=== PATIENT | male | born 1980 | race Caucasian/White ===

== ENCOUNTER → 2021-06-24 13:08 | Outpatient (CLI) | payer OTHER, SELFPAY ==
--- NOTE | 2021-06-24 | DI.MRI.S_ITS ---
PROCEDURE: MR HEAD/BRAIN WO/W CON INDICATIONS: Unspecified injury of head, initial encounter TECHNIQUE: Noncontrast axial T1 spin echo, axial T2 fast spin echo, sagittal and axial FLAIR, coronal T2 fast spin echo, axial gradient echo, axial diffusion and ADC through the brain. After the administration of contrast, axial and coronal 3D VIBE or T1 spin echo with fat saturation through the brain. COMPARISON: None. FINDINGS: Image quality: Excellent. CSF Spaces: Basal cisterns are patent. No extra-axial fluid collections. Ventricles are normal in size and shape. Brain: No midline shift. No intracranial bleeds or masses. No abnormal intracranial enhancement. The brainstem appears normal. Diffusion-weighted images demonstrate no acute ischemic insults. No chronic ischemic insults. Normal intravascular flow voids are present. Skull and face: Calvarial marrow is normal in signal. Orbits appear normal. Sinuses: Sinuses and mastoids appear clear. IMPRESSION: No findings of hemorrhage or brain edema can be seen. Negative for hydrocephalus. No findings of acute or subacute infarction can be seen. No masses or abnormal enhancement can be seen. Dictated by: David Cervantes M.D. on 06/24/2021 at 13:51 Approved by: David Cervantes M.D. on 06/24/2021 at 13:51
== END ==
PROVIDERS: PCP Family Medicine; Referring Provider Family Medicine; Visit Provider Family Medicine
DX: S09.90XA Unspecified injury of head, initial encounter (principal); R42 Dizziness and giddiness; R45.86 Emotional lability; H52.7 Unspecified disorder of refraction; X58.XXXA Exposure to other specified factors, initial encounter
CPT/HCPCS: 70553

== ENCOUNTER 2021-08-31 13:45 | Outpatient (RCR) | payer OTHER, SELFPAY ==
--- NOTE | 2021-08-13 12:48 | PT.OIE ---
Current Diagnoses Dizziness and giddiness (08/13/21) Unspecified injury of head, initial encounter (08/13/21) Unspecified injury of head, subsequent encounter (08/13/21) Visit Care Team Role Provider Type Jordyn Vaca DO Attending Provider Non-Staff Family Provider Primary Care Provider Referring Provider Specialty: Medical Address: [address] [place] [address], [id number] Email: Physical Therapy Initial Evaluation PT-OP-A Visit Information Start: 08/13/21 11:42 Freq: Status: Active Protocol: Document 08/13/21 09:45 DCW (Rec: 08/13/21 11:48 DCW [id number]) Out-Patient Physical Therapy Visit Information Visit Information Visit Type Initial Evaluation Visit Start Time 09:45 Visit Stop Time 10:30 Total Visit Minutes 45 Visit Number 1 Number of BILLING AND INSURANCE COORDINATOR Visits 0 Evaluation Information Evaluation Date 08/13/21 PT-OP-B Current Condition Start: 08/13/21 11:42 Freq: Status: Active Protocol: Document 08/13/21 09:45 DCW (Rec: 08/13/21 12:26 DCW [id number]) Current Condition History of Current Condition Onset Date 2016 Current Complaints Visual motion sensitivity History of Current Condition Pt is a 41 year old male presenting with a 6 year history of imbalance following a concussion. 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 [employer] set him ashore until he was properly diagnosed and treated enough that he could fulfill normal functions. Pt notes he underwent 2 years of rehab, including six months of intensive concussion recovery training, which involved getting into a large simulator which was able to mimic sea conditions, and he was able to slowly build tolerance, and symptoms largely resolved. 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 Over the holidays, however he flew back home for a visit, and the flight flared up his symptoms, and now he is struggling more with riding as a passenger in a car, walking down aisles in stores, watching the movement of a preservationist, or watching [employer] TV programs. 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 Prior Treatments and Tests Brain MRI: IMPRESSION: No findings of hemorrhage or brain edema can be seen. Negative for hydrocephalus. No findings of acute or subacute infarction can be seen. No masses or abnormal enhancement can be seen. Per David Cervantes M.D. 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 It's not like I can just hop on and then get off after an hour or a day if it's bothering me. Patient Reported Progress Worse Patient Questionnaires Dizziness Handicap Inventory DHI Score 38% DHI Functional Impairment 20 to 39% Impaired (Score 20- 39) PT-OP-D Balance Start: 08/13/21 11:42 Freq: Status: Active Protocol: Document 08/13/21 09:45 DCW (Rec: 08/13/21 11:53 DCW [id number]) OP-PT Balance Assessment Sitting Balance Static Sitting Balance Ability Normal Dynamic Sitting Balance Ability Normal Standing Balance Static Standing Balance Ability Normal Dynamic Standing Balance Ability Normal Balance Tests Single Limb Standing Single Limb- Right 30+ Single Limb- Left 30+ Tandem Tandem Standing 30+ bilaterally Beatty Fall Scale Copyright Permission PT-OP-O Vestibular Start: 08/13/21 11:42 Freq: Status: Active Protocol: Document 08/13/21 09:45 DCW (Rec: 08/13/21 11:53 DCW [id number]) Vestibular Assessment Screening Tests Vestibular Artery Screen Negative Auditory Tests Youssef Test Within normal limits Rinne Test Negative Air Conduction Results Equal Visual Testing Smooth Pursuits Horizontal WNL Smooth Pursuits Vertical WNL Saccades Horizontal WNL Saccades Vertical WNL Gaze Evoked Nystagmus With Fixation Negative Gaze Evoked Nystagmus Without Fixation Negative Diego String Test Impaired Convergence Test Impaired DVA (Line Degradation) 2 Head Shake Negative Spontaneous Nystagmus Negative Comments Vestibular Comments Diego string: Pt left eye cannot keep up with right eye when moving back and forth between beads, significant delay. Convergence test: Pt reports diplopia ay 12 cm PT-OP-Q Treatments Start: 08/13/21 11:42 Freq: Status: Active Protocol: Document 08/13/21 09:45 DCW (Rec: 08/13/21 11:53 DCW [id number]) Self-Care/Home Management Treatment Education Patient Education Home Exercise Program Other Education Demonstration of pencil push- ups PT-OP-T Assessment and Plan Start: 08/13/21 11:42 Freq: Status: Active Protocol: Document 08/13/21 09:45 DCW (Rec: 08/13/21 12:48 DCW [id number]) Physical Therapy Assessment Rehab Potential Rehabilitation Potential Good Evaluation Complexity Number of Personal Factors/Comorbidities 3 or More Number of Body Systems Impaired 4 or More Clinical Presentation at Evaluation Unstable Impairments Impairments Vestibular,Visual Motor Other Impairments Concussion history, visual changes, UE numbness/tingling, sinus pressure, visual motion sensitivities Goals Three Impairment Pt becomes highly symptomatic with riding in vehicle or watching TV [facility] Goal (LTG) Pt no report ability to ride as a passenger in a car for 60 minutes without increased symptoms LTG Duration 11/13/21 Two Impairment Pt experiences diplopia with convergence at 12 cm Certified Ophthalmic Assistant Goal (LTG) Pt to demonstrate ability to not experience diplopia with convergence until 6 cm to show improved occulomotor control and display improved visual tracking LTG Duration 11/13/21 One Impairment Pt does not have an appropriate home exercise program Short Term Goal (STG) Pt to be independent and compliant with an appropriate HEP STG Duration 09/13/21 Assessment Summary Assessment Pt presents with signs and symptoms consistent with Optokinetic Nystagmus/Visual Motion sensitivity. Vestibular testing largely negative today, however pt did display abnormal testing with both convergence and Diego string, in both instances, his left eye appears to lag behind and track in an abnormal pattern when changing field of vision. This may be responsible for his abnormal sensations and nausea with excessive visual motion. Will likely benefit from skilled vestibular therapy focusing on occulomotor and visual motion training to help diminish/ control symptoms. Further testing will also likely be helpful to determine extent of pt's sensitivities. Physical Therapy Plan Frequency and Duration Frequency of Treatment 2x/Week Duration of Treatment Three months Plan of Care Start Date 08/13/21 Plan of Care End Date 11/13/21 Therapeutic Interventions Therapeutic Interventions Balance Training,Coordination Training,Gait Training,Home Exercise Program,Manual Therapy,Neuromuscular Re- education,Patient/Caregiver Education,Self-Care/Home Management,Therapeutic Activities,Therapeutic Exercises,Vestibular Rehabilitation Next Visit Focus/Plan Next Note Type Treatment Note Next Visit Plan Further vestibular/balance/ occulomotor testing, vestibular rehab
--- NOTE | 2021-08-13 12:50 | PT.OPPOC ---
Physical, Occupational & Speech Therapy At [facility] Current Diagnoses Dizziness and giddiness (08/13/21) Unspecified injury of head, initial encounter (08/13/21) Unspecified injury of head, subsequent encounter (08/13/21) Visit Care Team Role Provider Type Jordyn Vaca DO Attending Provider Non-Staff Family Provider Primary Care Provider Referring Provider Specialty: Medical Address: [address] [place] [address], [id number] Email: Plan Of Care PT-OP-T Assessment and Plan Start: 08/13/21 11:42 Freq: Status: Active Protocol: Document 08/13/21 09:45 DCW (Rec: 08/13/21 12:48 DCW [id number]) Physical Therapy Assessment Rehab Potential Rehabilitation Potential Good Evaluation Complexity Number of Personal Factors/Comorbidities 3 or More Number of Body Systems Impaired 4 or More Clinical Presentation at Evaluation Unstable Impairments Impairments Vestibular,Visual Motor Other Impairments Concussion history, visual changes, UE numbness/tingling, sinus pressure, visual motion sensitivities Goals Three Impairment Pt becomes highly symptomatic with riding in vehicle or watching TV [facility] Goal (LTG) Pt to report ability to ride as a passenger in a car for 60 minutes without increased symptoms LTG Duration 11/13/21 Two Impairment Pt experiences diplopia with convergence at 12 cm [facility] Goal (LTG) Pt to demonstrate ability to not experience diplopia with convergence until 6 cm to show improved occulomotor control and display improved visual tracking LTG Duration 11/13/21 One Impairment Pt does not have an appropriate home exercise program Short Term Goal (STG) Pt to be independent and compliant with an appropriate HEP STG Duration 09/13/21 Assessment Summary Assessment Pt presents with signs and symptoms consistent with Optokinetic Nystagmus/Visual Motion sensitivity. Vestibular testing largely negative today, however pt did display abnormal testing with both convergence and Diego string, in both instances, his left eye appears to lag behind and track in an abnormal pattern when changing field of vision. This may be responsible for his abnormal sensations and nausea with excessive visual motion. Will likely benefit from skilled vestibular therapy focusing on occulomotor and visual motion training to help diminish/ control symptoms. Further testing will also likely be helpful to determine extent of pt's sensitivities. Physical Therapy Plan Frequency and Duration Frequency of Treatment 2x/Week Duration of Treatment Three months Plan of Care Start Date 08/13/21 Plan of Care End Date 11/13/21 Therapeutic Interventions Therapeutic Interventions Balance Training,Coordination Training,Gait Training,Home Exercise Program,Manual Therapy,Neuromuscular Re- education,Patient/Caregiver Education,Self-Care/Home Management,Therapeutic Activities,Therapeutic Exercises,Vestibular Rehabilitation Next Visit Focus/Plan Next Note Type Treatment Note Next Visit Plan Further vestibular/balance/ occulomotor testing, vestibular rehab Plan of Care Dates Plan of Care Start Date 08/13/21 Plan of Care End Date 11/13/21 Electronically Signed by: Douglas Chen, PT 08/13/21 1250 Please Sign and Return: I have reviewed this Plan of Care and certify that the skilled therapy services above are required to meet the patient?s needs. Physician Signature Date Printed Name and Credentials Clinical Instructor Signature Printed Name and Credentials
--- NOTE | 2021-08-17 14:34 | PT.OTN ---
Current Diagnoses Dizziness and giddiness (08/17/21) Unspecified injury of head, initial encounter (08/17/21) Unspecified injury of head, subsequent encounter (08/17/21) Physical Therapy Treatment Note PT-OP-A Visit Information Start: 08/13/21 11:42 Freq: Status: Active Protocol: Document 08/17/21 13:45 DCW (Rec: 08/17/21 14:34 DCW [id number]) Out-Patient Physical Therapy Visit Information Visit Information Visit Type Treatment Note Visit Start Time 13:45 Visit Stop Time 14:30 Total Visit Minutes 45 Visit Number 2 Number of CYBER ENGINEER Visits 0 Evaluation Information Evaluation Date 08/13/21 PT-OP-B Current Condition Start: 08/13/21 11:42 Freq: Status: Active Protocol: Document 08/13/21 09:45 DCW (Rec: 08/13/21 12:26 DCW [id number]) Current Condition History of Current Condition Onset Date 2015 Current Complaints Visual motion sensitivity History of Current Condition Pt is a 41 year old male presenting with a 6 year history of imbalance following a concussion. 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 [employer] set him ashore until he was properly diagnosed and treated enough that he could fulfill normal functions. Pt notes he underwent 2 years of rehab, including six months of intensive concussion recovery training, which involved getting into a large simulator which was able to mimic sea conditions, and he was able to slowly build tolerance, and symptoms largely resolved. 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 Over the holidays, however he flew back home for a visit, and the flight flared up his symptoms, and now he is struggling more with riding as a passenger in a car, walking down aisles in stores, watching the movement of a tracer powder blender, or watching shakey TV programs. 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 Prior Treatments and Tests Brain MRI: IMPRESSION: No findings of hemorrhage or brain edema can be seen. Negative for hydrocephalus. No findings of acute or subacute infarction can be seen. No masses or abnormal enhancement can be seen. Per David Cervantes M.D. 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 Pt notes he was doing his pencil pushups daily . PT-OP-D Balance Start: 08/13/21 11:42 Freq: Status: Active Protocol: Document 08/13/21 09:45 DCW (Rec: 08/13/21 11:53 DCW [id number]) OP-PT Balance Assessment Sitting Balance Static Sitting Balance Ability Normal Dynamic Sitting Balance Ability Normal Standing Balance Static Standing Balance Ability Normal Dynamic Standing Balance Ability Normal Balance Tests Single Limb Standing Single Limb- Right 30+ Single Limb- Left 30+ Tandem Tandem Standing 30+ bilaterally Beatty Fall Scale Copyright Permission PT-OP-O Vestibular Start: 08/13/21 11:42 Freq: Status: Active Protocol: Document 08/13/21 09:45 DCW (Rec: 08/13/21 11:53 DCW [id number]) Vestibular Assessment Screening Tests Vestibular Artery Screen Negative Auditory Tests Youssef Test Within normal limits Rinne Test Negative Air Conduction Results Equal Visual Testing Smooth Pursuits Horizontal WNL Smooth Pursuits Vertical WNL Saccades Horizontal WNL Saccades Vertical WNL Gaze Evoked Nystagmus With Fixation Negative Gaze Evoked Nystagmus Without Fixation Negative Diego String Test Impaired Convergence Test Impaired DVA (Line Degradation) 2 Head Shake Negative Spontaneous Nystagmus Negative Comments Vestibular Comments Diego string: Pt left eye cannot keep up with right eye when moving back and forth between beads, significant delay. Convergence test: Pt reports diplopia ay 12 cm PT-OP-Q Treatments Start: 08/13/21 11:42 Freq: Status: Active Protocol: Document 08/17/21 13:45 DCW (Rec: 08/17/21 14:34 DCW [id number]) Neuro Re-Education Treatment Balance Activities BOSU Stance Details BOSU DL stance Surface Blue BOSU Retro Walking Details Backward Amb Tandem Ambulation Details Tandem Amb Head Turns Details Amb /c head turns Comments Horizontal/Vertical Vestibular Rehabilitation Disco ball Details Testing tolerance Position Standing/Foam standing Comments ~60 tolerance on firm and foam, reported pressure over eyes afterward Corrective Saccades Details Eyes, then head Distance From Target arm's length Speed as tolerated Position seated X2 Viewing Details Head/target in opposite directions Distance From Target arm's length Speed as tolerated Position seated X1 Viewing Details Head moves/target still Distance From Target arm's length Speed as tolerated Position seated VOR Retraining Details Head/Target move together Distance From Target arm's length Speed as tolerated Position seated Convergence Details Pencil push-ups Distance From Target varied Speed as tolerated Position seated PT-OP-T Assessment and Plan Start: 08/13/21 11:42 Freq: Status: Active Protocol: Document 08/17/21 13:45 DCW (Rec: 08/17/21 14:34 DCW [id number]) Physical Therapy Assessment Impairments Impairments Vestibular,Visual Motor Other Impairments Concussion history, visual changes, UE numbness/tingling, sinus pressure, visual motion sensitivities Goals Three Impairment Pt becomes highly symptomatic with riding in vehicle or watching TV [facility] Goal (LTG) Pt to report ability to ride as a passenger in a car for 60 minutes without increased symptoms LTG Duration 11/13/21 Two Impairment Pt experiences diplopia with convergence at 12 cm [facility] Goal (LTG) Pt to demonstrate ability to not experience diplopia with convergence until 6 cm to show improved occulomotor control and display improved visual tracking LTG Duration 11/13/21 One Impairment Pt does not have an appropriate home exercise program Short Term Goal (STG) Pt to be independent and compliant with an appropriate HEP STG Duration 09/13/21 Assessment Summary Assessment Pt continues to display difficulty with challenges to visual and vestibular system, especially head turns during gait. Given HEP for occulomotor/vestibular training. Physical Therapy Plan Frequency and Duration Frequency of Treatment 2x/Week Duration of Treatment Three months Plan of Care Start Date 08/13/21 Plan of Care End Date 11/13/21 Therapeutic Interventions Therapeutic Interventions Balance Training,Coordination Training,Gait Training,Home Exercise Program,Manual Therapy,Neuromuscular Re- education,Patient/Caregiver Education,Self-Care/Home Management,Therapeutic Activities,Therapeutic Exercises,Vestibular Rehabilitation Next Visit Focus/Plan Next Note Type Treatment Note Next Visit Plan Further vestibular/balance/ occulomotor testing, vestibular rehab
--- NOTE | 2021-08-19 10:30 | PT.OTN ---
Current Diagnoses Dizziness and giddiness (08/19/21) Unspecified injury of head, initial encounter (08/19/21) Unspecified injury of head, subsequent encounter (08/19/21) Physical Therapy Treatment Note PT-OP-A Visit Information Start: 08/13/21 11:42 Freq: Status: Active Protocol: Document 08/19/21 09:45 DCW (Rec: 08/19/21 10:30 DCW [id number]) Out-Patient Physical Therapy Visit Information Visit Information Visit Type Treatment Note Visit Start Time 09:45 Visit Stop Time 10:15 Total Visit Minutes 30 Visit Number 3 Number of FLOORING MACHINE OPERATOR Visits 0 Evaluation Information Evaluation Date 08/13/21 PT-OP-B Current Condition Start: 08/13/21 11:42 Freq: Status: Active Protocol: Document 08/13/21 09:45 DCW (Rec: 08/13/21 12:26 DCW [id number]) Current Condition History of Current Condition Onset Date 2015 Current Complaints Visual motion sensitivity History of Current Condition Pt is a 41 year old male presenting with a 6 year history of imbalance following a concussion. 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 [facility] set him ashore until he was properly diagnosed and treated enough that he could fulfill normal functions. Pt notes he underwent 2 years of rehab, including six months of intensive concussion recovery training, which involved getting into a large simulator which was able to mimic sea conditions, and he was able to slowly build tolerance, and symptoms largely resolved. 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 Over the holidays, however he flew back home for a visit, and the flight flared up his symptoms, and now he is struggling more with riding as a passenger in a car, walking down aisles in stores, watching the movement of a shipping and receiving coordinator, or watching shakey TV programs. 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 Prior Treatments and Tests Brain MRI: IMPRESSION: No findings of hemorrhage or brain edema can be seen. Negative for hydrocephalus. No findings of acute or subacute infarction can be seen. No masses or abnormal enhancement can be seen. Per David Cervantes M.D. 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 [employer] PT-OP-C Subjective Start: 08/13/21 11:42 Freq: Status: Active Protocol: Document 08/19/21 09:45 DCW (Rec: 08/19/21 10:30 DCW [id number]) OP-PT Subjective Patient Comments Patient Comments Pt notes he was bad enough following his last visit he was not able to function very well in his daily life, was not able to perform his HEP PT-OP-D Balance Start: 08/13/21 11:42 Freq: Status: Active Protocol: Document 08/13/21 09:45 DCW (Rec: 08/13/21 11:53 DCW [id number]) OP-PT Balance Assessment Sitting Balance Static Sitting Balance Ability Normal Dynamic Sitting Balance Ability Normal Standing Balance Static Standing Balance Ability Normal Dynamic Standing Balance Ability Normal Balance Tests Single Limb Standing Single Limb- Right 30+ Single Limb- Left 30+ Tandem Tandem Standing 30+ bilaterally Beatty Fall Scale Copyright Permission PT-OP-O Vestibular Start: 08/13/21 11:42 Freq: Status: Active Protocol: Document 08/13/21 09:45 DCW (Rec: 08/13/21 11:53 DCW [id number]) Vestibular Assessment Screening Tests Vestibular Artery Screen Negative Auditory Tests Youssef Test Within normal limits Rinne Test Negative Air Conduction Results Equal Visual Testing Smooth Pursuits Horizontal WNL Smooth Pursuits Vertical WNL Saccades Horizontal WNL Saccades Vertical WNL Gaze Evoked Nystagmus With Fixation Negative Gaze Evoked Nystagmus Without Fixation Negative Diego String Test Impaired Convergence Test Impaired DVA (Line Degradation) 2 Head Shake Negative Spontaneous Nystagmus Negative Comments Vestibular Comments Diego string: Pt left eye cannot keep up with right eye when moving back and forth between beads, significant delay. Convergence test: Pt reports diplopia ay 12 cm PT-OP-Q Treatments Start: 08/13/21 11:42 Freq: Status: Active Protocol: Document 08/19/21 09:45 DCW (Rec: 08/19/21 10:30 DCW [id number]) Gym Equipment Shuttle Balance Red Details WBOS, Staggered, Lateral weight shift Neuro Re-Education Treatment Balance Activities BOSU Stance Details BOSU DL stance Surface Blue BOSU PT-OP-T Assessment and Plan Start: 08/13/21 11:42 Freq: Status: Active Protocol: Document 08/19/21 09:45 DCW (Rec: 08/19/21 10:30 DCW [id number]) Physical Therapy Assessment Impairments Impairments Vestibular,Visual Motor Other Impairments Concussion history, visual changes, UE numbness/tingling, sinus pressure, visual motion sensitivities Goals Three Impairment Pt becomes highly symptomatic with riding in vehicle or watching TV [facility] Goal (LTG) Pt to report ability to ride as a passenger in a car for 60 minutes without increased symptoms LTG Duration 11/13/21 Two Impairment Pt experiences diplopia with convergence at 12 cm Costume Cutter Goal (LTG) Pt to demonstrate ability to not experience diplopia with convergence until 6 cm to show improved occulomotor control and display improved visual tracking LTG Duration 11/13/21 One Impairment Pt does not have an appropriate home exercise program Short Term Goal (STG) Pt to be independent and compliant with an appropriate HEP STG Duration 09/13/21 Assessment Summary Assessment Shortened session today due to pt's severe symptomatic response from last visit. Focused more on balance than challenging visual and vestibular system, pt still very quickly felt overworked and began sweating profusely. Physical Therapy Plan Frequency and Duration Frequency of Treatment 2x/Week Duration of Treatment Three months Plan of Care Start Date 08/13/21 Plan of Care End Date 11/13/21 Therapeutic Interventions Therapeutic Interventions Balance Training,Coordination Training,Gait Training,Home Exercise Program,Manual Therapy,Neuromuscular Re- education,Patient/Caregiver Education,Self-Care/Home Management,Therapeutic Activities,Therapeutic Exercises,Vestibular Rehabilitation Next Visit Focus/Plan Next Note Type Treatment Note Next Visit Plan Further vestibular/balance/ occulomotor testing, vestibular rehab
--- NOTE | 2021-08-24 11:13 | PT.OTN ---
Current Diagnoses Dizziness and giddiness (08/24/21) Unspecified injury of head, initial encounter (08/24/21) Unspecified injury of head, subsequent encounter (08/24/21) Physical Therapy Treatment Note PT-OP-A Visit Information Start: 08/13/21 11:42 Freq: Status: Active Protocol: Document 08/24/21 10:30 DCW (Rec: 08/24/21 11:13 DCW [id number]) Out-Patient Physical Therapy Visit Information Visit Information Visit Type Treatment Note Visit Start Time 10:30 Visit Stop Time 11:00 Total Visit Minutes 30 Visit Number 4 Number of WORD PROCESSING SPECIALIST Visits 0 Evaluation Information Evaluation Date 08/13/21 PT-OP-B Current Condition Start: 08/13/21 11:42 Freq: Status: Active Protocol: Document 08/13/21 09:45 DCW (Rec: 08/13/21 12:26 DCW [id number]) Current Condition History of Current Condition Onset Date 2015 Current Complaints Visual motion sensitivity History of Current Condition Pt is a 41 year old male presenting with a 6 year history of imbalance following a concussion. 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 [employer] set him ashore until he was properly diagnosed and treated enough that he could fulfill normal functions. Pt notes he underwent 2 years of rehab, including six months of intensive concussion recovery training, which involved getting into a large simulator which was able to mimic sea conditions, and he was able to slowly build tolerance, and symptoms largely resolved. 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 Over the holidays, however he flew back home for a visit, and the flight flared up his symptoms, and now he is struggling more with riding as a passenger in a car, walking down aisles in stores, watching the movement of a email developer, or watching shakey TV programs. 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 Prior Treatments and Tests Brain MRI: IMPRESSION: No findings of hemorrhage or brain edema can be seen. Negative for hydrocephalus. No findings of acute or subacute infarction can be seen. No masses or abnormal enhancement can be seen. Per David Cervantes M.D. 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 PT-OP-D Balance Start: 08/13/21 11:42 Freq: Status: Active Protocol: Document 08/13/21 09:45 DCW (Rec: 08/13/21 11:53 DCW [id number]) OP-PT Balance Assessment Sitting Balance Static Sitting Balance Ability Normal Dynamic Sitting Balance Ability Normal Standing Balance Static Standing Balance Ability Normal Dynamic Standing Balance Ability Normal Balance Tests Single Limb Standing Single Limb- Right 30+ Single Limb- Left 30+ Tandem Tandem Standing 30+ bilaterally Beatty Fall Scale Copyright Permission PT-OP-O Vestibular Start: 08/13/21 11:42 Freq: Status: Active Protocol: Document 08/13/21 09:45 DCW (Rec: 08/13/21 11:53 DCW [email or web address] [id number]) Vestibular Assessment Screening Tests Vestibular Artery Screen Negative Auditory Tests Youssef Test Within normal limits Rinne Test Negative Air Conduction Results Equal Visual Testing Smooth Pursuits Horizontal WNL Smooth Pursuits Vertical WNL Saccades Horizontal WNL Saccades Vertical WNL Gaze Evoked Nystagmus With Fixation Negative Gaze Evoked Nystagmus Without Fixation Negative Diego String Test Impaired Convergence Test Impaired DVA (Line Degradation) 2 Head Shake Negative Spontaneous Nystagmus Negative Comments Vestibular Comments Diego string: Pt left eye cannot keep up with right eye when moving back and forth between beads, significant delay. Convergence test: Pt reports diplopia ay 12 cm PT-OP-Q Treatments Start: 08/13/21 11:42 Freq: Status: Active Protocol: Document 08/24/21 10:30 DCW (Rec: 08/24/21 11:13 DCW [id number]) Gym Equipment Shuttle Balance Red Comments WBOS: EO/EC, X1 Staggered Lateral weight shift Neuro Re-Education Treatment Balance Activities BOSU Stance Details BOSU DL stance Surface Blue BOSU Head Turns Details Amb /c head turns Comments Horizontal PT-OP-T Assessment and Plan Start: 08/13/21 11:42 Freq: Status: Active Protocol: Document 08/24/21 10:30 DCW (Rec: 08/24/21 11:13 DCW [id number]) Physical Therapy Assessment Impairments Impairments Vestibular,Visual Motor Other Impairments Concussion history, visual changes, UE numbness/tingling, sinus pressure, visual motion sensitivities Goals Three Impairment Pt becomes highly symptomatic with riding in vehicle or watching TV [facility] Goal (LTG) Pt to report ability to ride as a passenger in a car for 60 minutes without increased symptoms LTG Duration 11/13/21 Two Impairment Pt experiences diplopia with convergence at 12 cm [facility] Goal (LTG) Pt to demonstrate ability to not experience diplopia with convergence until 6 cm to show improved occulomotor control and display improved visual tracking LTG Duration 11/13/21 One Impairment Pt does not have an appropriate home exercise program Short Term Goal (STG) Pt to be independent and compliant with an appropriate HEP STG Duration 09/13/21 Assessment Summary Assessment Shortened today's session again to help pt adjust to workload. Increased intensity of today's activities. If pt does well following today's session, will likely try for full session next visit. Physical Therapy Plan Frequency and Duration Frequency of Treatment 2x/Week Duration of Treatment Three months Plan of Care Start Date 08/13/21 Plan of Care End Date 11/13/21 Therapeutic Interventions Therapeutic Interventions Balance Training,Coordination Training,Gait Training,Home Exercise Program,Manual Therapy,Neuromuscular Re- education,Patient/Caregiver Education,Self-Care/Home Management,Therapeutic Activities,Therapeutic Exercises,Vestibular Rehabilitation Next Visit Focus/Plan Next Note Type Treatment Note Next Visit Plan Further vestibular/balance/ occulomotor testing, vestibular rehab
--- NOTE | 2021-08-27 09:47 | PT.OTN ---
Current Diagnoses Dizziness and giddiness (08/27/21) Unspecified injury of head, initial encounter (08/27/21) Unspecified injury of head, subsequent encounter (08/27/21) Physical Therapy Treatment Note PT-OP-A Visit Information Start: 08/13/21 11:42 Freq: Status: Active Protocol: Document 08/27/21 09:01 DCW (Rec: 08/27/21 09:47 DCW [id number]) Out-Patient Physical Therapy Visit Information Visit Information Visit Type Treatment Note Visit Start Time 09:01 Visit Stop Time 09:45 Total Visit Minutes 44 Visit Number 5 Number of SENIOR MORTGAGE LOAN PROCESSOR Visits 0 Evaluation Information Evaluation Date 08/13/21 PT-OP-B Current Condition Start: 08/13/21 11:42 Freq: Status: Active Protocol: Document 08/13/21 09:45 DCW (Rec: 08/13/21 12:26 DCW [id number]) Current Condition History of Current Condition Onset Date 2015 Current Complaints Visual motion sensitivity History of Current Condition Pt is a 41 year old male presenting with a 6 year history of imbalance following a concussion. 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 [employer] set him ashore until he was properly diagnosed and treated enough that he could fulfill normal functions. Pt notes he underwent 2 years of rehab, including six months of intensive concussion recovery training, which involved getting into a large simulator which was able to mimic sea conditions, and he was able to slowly build tolerance, and symptoms largely resolved. 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 Over the holidays, however he flew back home for a visit, and the flight flared up his symptoms, and now he is struggling more with riding as a passenger in a car, walking down aisles in stores, watching the movement of a feed blender, or watching shakey TV programs. 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 Prior Treatments and Tests Brain MRI: IMPRESSION: No findings of hemorrhage or brain edema can be seen. Negative for hydrocephalus. No findings of acute or subacute infarction can be seen. No masses or abnormal enhancement can be seen. Per David Cervantes M.D. 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 And my jeep's side-ti- siide movements really bothered me. PT-OP-D Balance Start: 08/13/21 11:42 Freq: Status: Active Protocol: Document 08/13/21 09:45 DCW (Rec: 08/13/21 11:53 DCW [id number]) OP-PT Balance Assessment Sitting Balance Static Sitting Balance Ability Normal Dynamic Sitting Balance Ability Normal Standing Balance Static Standing Balance Ability Normal Dynamic Standing Balance Ability Normal Balance Tests Single Limb Standing Single Limb- Right 30+ Single Limb- Left 30+ Tandem Tandem Standing 30+ bilaterally Beatty Fall Scale Copyright Permission PT-OP-O Vestibular Start: 08/13/21 11:42 Freq: Status: Active Protocol: Document 08/13/21 09:45 DCW (Rec: 08/13/21 11:53 DCW [id number]) Vestibular Assessment Screening Tests Vestibular Artery Screen Negative Auditory Tests Youssef Test Within normal limits Rinne Test Negative Air Conduction Results Equal Visual Testing Smooth Pursuits Horizontal WNL Smooth Pursuits Vertical WNL Saccades Horizontal WNL Saccades Vertical WNL Gaze Evoked Nystagmus With Fixation Negative Gaze Evoked Nystagmus Without Fixation Negative Diego String Test Impaired Convergence Test Impaired DVA (Line Degradation) 2 Head Shake Negative Spontaneous Nystagmus Negative Comments Vestibular Comments Diego string: Pt left eye cannot keep up with right eye when moving back and forth between beads, significant delay. Convergence test: Pt reports diplopia ay 12 cm PT-OP-Q Treatments Start: 08/13/21 11:42 Freq: Status: Active Protocol: Document 08/27/21 09:01 DCW (Rec: 08/27/21 09:47 DCW [id number]) Gym Equipment Shuttle Balance Red Comments WBOS: Ball toss, EC Neuro Re-Education Treatment Balance Activities Step, [place], Turn Details 3 steps, bow, head turns Comments staggered, tandem BOSU Stance Details BOSU DL stance Surface Blue BOSU Comments EO/EC, X1 Head Turns Details Amb /c head turns Comments Horizontal Vestibular Rehabilitation Convergence Details Pencil push-ups Distance From Target varied Speed as tolerated Position seated Reps/Duration x3 Comments Diplopia at: 16 cm 18 cm 14 cm PT-OP-T Assessment and Plan Start: 08/13/21 11:42 Freq: Status: Active Protocol: Document 08/27/21 09:01 [facility] (Rec: 08/27/21 09:47 [facility] [id number]) Physical Therapy Assessment Impairments Impairments Vestibular,Visual Motor Other Impairments Concussion history, visual changes, UE numbness/tingling, sinus pressure, visual motion sensitivities Goals Three Impairment Pt becomes highly symptomatic with riding in vehicle or watching TV [facility] Goal (LTG) Pt to report ability to ride as a passenger in a car for 60 minutes without increased symptoms LTG Duration 11/13/21 Two Impairment Pt experiences diplopia with convergence at 12 cm [employer] Goal (LTG) Pt to demonstrate ability to not experience diplopia with convergence until 6 cm to show improved occulomotor control and display improved visual tracking LTG Duration 11/13/21 One Impairment Pt does not have an appropriate home exercise program Short Term Goal (STG) Pt to be independent and compliant with an appropriate HEP STG Duration 09/13/21 Assessment Summary Assessment Pt tolerated treatment a bit better today, able to do a full session, still very overwhelmed with nearly all visual input. Physical Therapy Plan Frequency and Duration Frequency of Treatment 2x/Week Duration of Treatment Three months Plan of Care Start Date 08/13/21 Plan of Care End Date 11/13/21 Therapeutic Interventions Therapeutic Interventions Balance Training,Coordination Training,Gait Training,Home Exercise Program,Manual Therapy,Neuromuscular Re- education,Patient/Caregiver Education,Self-Care/Home Management,Therapeutic Activities,Therapeutic Exercises,Vestibular Rehabilitation Next Visit Focus/Plan Next Note Type Treatment Note Next Visit Plan Further vestibular/balance/ occulomotor testing, vestibular rehab
--- NOTE | 2021-08-31 14:32 | PT.OTN ---
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 [employer] set him ashore until he was properly diagnosed and treated enough that he could fulfill normal functions. Pt notes he underwent 2 years of rehab, including six months of intensive concussion recovery training, which involved getting into a large simulator which was able to mimic sea conditions, and he was able to slowly build tolerance, and symptoms largely resolved. 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 Over the holidays, however he flew back home for a visit, and the flight flared up his symptoms, and now he is struggling more with riding as a passenger in a car, walking down aisles in stores, watching the movement of a screener and blender operator, or watching shakey TV programs. 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 Prior Treatments and Tests Brain MRI: IMPRESSION: No findings of hemorrhage or brain edema can be seen. Negative for hydrocephalus. No findings of acute or subacute infarction can be seen. No masses or abnormal enhancement can be seen. Per David Cervantes M.D. 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 PT-OP-D Balance Start: 08/13/21 11:42 Freq: Status: Active Protocol: Document 08/13/21 09:45 DCW (Rec: 08/13/21 11:53 DCW [id number]) OP-PT Balance Assessment Sitting Balance Static Sitting Balance Ability Normal Dynamic Sitting Balance Ability Normal Standing Balance Static Standing Balance Ability Normal Dynamic Standing Balance Ability Normal Balance Tests Single Limb Standing Single Limb- Right 30+ Single Limb- Left 30+ Tandem Tandem Standing 30+ bilaterally Beatty Fall Scale Copyright Permission PT-OP-O Vestibular Start: 08/13/21 11:42 Freq: Status: Active Protocol: Document 08/13/21 09:45 DCW (Rec: 08/13/21 11:53 DCW [id number]) Vestibular Assessment Screening Tests Vestibular Artery Screen Negative Auditory Tests Youssef Test Within normal limits Rinne Test Negative Air Conduction Results Equal Visual Testing Smooth Pursuits Horizontal WNL Smooth Pursuits Vertical WNL Saccades Horizontal WNL Saccades Vertical WNL Gaze Evoked Nystagmus With Fixation Negative Gaze Evoked Nystagmus Without Fixation Negative Diego String Test Impaired Convergence Test Impaired DVA (Line Degradation) 2 Head Shake Negative Spontaneous Nystagmus Negative Comments Vestibular Comments Diego string: Pt left eye cannot keep up with right eye when moving back and forth between beads, significant delay. Convergence test: Pt reports diplopia ay 12 cm PT-OP-Q Treatments Start: 08/13/21 11:42 Freq: Status: Active Protocol: Document 08/31/21 13:45 DCW (Rec: 08/31/21 14:32 DCW [id number]) Gym Equipment Shuttle Balance Red Comments WBOS: Ball toss Staggered: Ball Toss Lateral weight shift Neuro Re-Education Treatment Balance Activities Turns during gait Comments Pt turns 180? on command Step, [place], Turn Details 3 steps, bow, head turns Comments staggered, tandem BOSU Stance Details BOSU DL stance Surface Blue BOSU Comments EO/EC, X1 Retro Walking Details Backward Amb Tandem Ambulation Details Tandem Amb Head Turns Details Amb /c head turns Comments Horizontal Vestibular Rehabilitation Disco ball Details Testing tolerance Position Seated PT-OP-T Assessment and Plan Start: 08/13/21 11:42 Freq: Status: Active Protocol: Document 08/31/21 13:45 DCW (Rec: 08/31/21 14:32 DCW [id number]) Physical Therapy Assessment Impairments Impairments Vestibular,Visual Motor Other Impairments Concussion history, visual changes, UE numbness/tingling, sinus pressure, visual motion sensitivities Goals Three Impairment Pt becomes highly symptomatic with riding in vehicle or watching TV Long-Term Goal (LTG) Pt to report ability to ride as a passenger in a car for 60 minutes without increased symptoms LTG Duration 11/13/21 Two Impairment Pt experiences diplopia with convergence at 12 cm Agent Producer Goal (LTG) Pt to demonstrate ability to not experience diplopia with convergence until 6 cm to show improved occulomotor control and display improved visual tracking LTG Duration 11/13/21 One Impairment Pt does not have an appropriate home exercise program Short Term Goal (STG) Pt to be independent and compliant with an appropriate HEP STG Duration 09/13/21 Assessment Summary Assessment Pt showed better tolerance to disco ball movement today, but after ~2 minutes, became nauseated and felt any small head movements made him worse. Is doing mildly better with most other activities. Physical Therapy Plan Frequency and Duration Frequency of Treatment 2x/Week Duration of Treatment Three months Plan of Care Start Date 08/13/21 Plan of Care End Date 11/13/21 Therapeutic Interventions Therapeutic Interventions Balance Training,Coordination Training,Gait Training,Home Exercise Program,Manual Therapy,Neuromuscular Re- education,Patient/Caregiver Education,Self-Care/Home Management,Therapeutic Activities,Therapeutic Exercises,Vestibular Rehabilitation Next Visit Focus/Plan Next Note Type Treatment Note Next Visit Plan Further vestibular/balance/ occulomotor testing, vestibular rehab
--- NOTE | 2022-01-14 08:52 | PT.OPDS ---
Current Diagnoses Dizziness and giddiness (08/31/21) Unspecified injury of head, initial encounter (08/31/21) Unspecified injury of head, subsequent encounter (08/31/21) Visit Care Team Role Provider Type Jordyn Vaca DO Attending Provider Non-Staff Family Provider Primary Care Provider Referring Provider Specialty: Medical Address: [address] [place] [address], [id number] Email: Visit Number Visit Number 6 Discharge Summary PT-OP-B Current Condition Start: 08/13/21 11:42 Freq: Status: Active Protocol: Document 08/13/21 09:45 DCW (Rec: 08/13/21 12:26 DCW [id number]) Current Condition History of Current Condition Onset Date 2015 Current Complaints Visual motion sensitivity History of Current Condition Pt is a 41 year old male presenting with a 6 year history of imbalance following a concussion. 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 [employer] set him ashore until he was properly diagnosed and treated enough that he could fulfill normal functions. Pt notes he underwent 2 years of rehab, including six months of intensive concussion recovery training, which involved getting into a large simulator which was able to mimic sea conditions, and he was able to slowly build tolerance, and symptoms largely resolved. 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 Over the holidays, however he flew back home for a visit, and the flight flared up his symptoms, and now he is struggling more with riding as a passenger in a car, walking down aisles in stores, watching the movement of a railroad operating engineer, or watching shakey TV programs. 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 Prior Treatments and Tests Brain MRI: IMPRESSION: No findings of hemorrhage or brain edema can be seen. Negative for hydrocephalus. No findings of acute or subacute infarction can be seen. No masses or abnormal enhancement can be seen. Per David Cervantes M.D. 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 PT-OP-D Balance Start: 08/13/21 11:42 Freq: Status: Active Protocol: Document 08/13/21 09:45 DCW (Rec: 08/13/21 11:53 DCW [id number]) OP-PT Balance Assessment Sitting Balance Static Sitting Balance Ability Normal Dynamic Sitting Balance Ability Normal Standing Balance Static Standing Balance Ability Normal Dynamic Standing Balance Ability Normal Balance Tests Single Limb Standing Single Limb- Right 30+ Single Limb- Left 30+ Tandem Tandem Standing 30+ bilaterally Beatty Fall Scale Copyright Permission PT-OP-O Vestibular Start: 08/13/21 11:42 Freq: Status: Active Protocol: Document 08/13/21 09:45 DCW (Rec: 08/13/21 11:53 DCW [id number]) Vestibular Assessment Screening Tests Vestibular Artery Screen Negative Auditory Tests Youssef Test Within normal limits Rinne Test Negative Air Conduction Results Equal Visual Testing Smooth Pursuits Horizontal WNL Smooth Pursuits Vertical WNL Saccades Horizontal WNL Saccades Vertical WNL Gaze Evoked Nystagmus With Fixation Negative Gaze Evoked Nystagmus Without Fixation Negative Diego String Test Impaired Convergence Test Impaired DVA (Line Degradation) 2 Head Shake Negative Spontaneous Nystagmus Negative Comments Vestibular Comments Diego string: Pt left eye cannot keep up with right eye when moving back and forth between beads, significant delay. Convergence test: Pt reports diplopia ay 12 cm PT-OP-T Assessment and Plan Start: 08/13/21 11:42 Freq: Status: Active Protocol: Document 01/14/22 08:51 DCW (Rec: 01/14/22 08:52 DCW [id number]) Physical Therapy Assessment Assessment Summary Assessment Pt had reported that his PCP requested he pause PT until he see a specialist, and would call back [facility] to schedule future appointments. Unfortunately, this was four months ago, and pt has not called back, will discharge from skilled therapy at this time. Pt will require a new referral in order to return Physical Therapy Plan Discharge Physical Therapy Discharge Reasons No Longer Attending PT
== END 2022-01-17 13:20 ==
LOC: PHYS 13:45
PROVIDERS: Family Provider Family Medicine; PCP Family Medicine; Referring Provider Family Medicine; Visit Provider Family Medicine
DX: R42 Dizziness and giddiness (principal); S09.90XD Unspecified injury of head, subsequent encounter; S09.90XA Unspecified injury of head, initial encounter
CPT/HCPCS: 97112; 97163